=== PATIENT | female | born 1970 | race Two or more races ===

== ENCOUNTER 2016-05-17 15:21 | Emergency (ER) | payer MEDICAID ==
[~2016-05-17] VITALS: Ht 165.1 cm; Wt 61.2 kg
[2016-05-17 15:28] VITALS: BP 99/66
[2016-05-17] MEDS ORDERED: IPRATROPIUM NEB FS 0.5 MG/2.5 ML AMPUL.NEB ONE (15:46)
[2016-05-17] MEDS ORDERED: ALBUTEROL FS 2.5 MG/3 ML VIAL.NEB ONE (15:46)
[2016-05-17] MEDS ORDERED: IPRATROPIUM NEB FS 0.5 MG/2.5 ML AMPUL.NEB NEB ONE (16:00)
[2016-05-17] MEDS ORDERED: ALBUTEROL FS 2.5 MG/3 ML VIAL.NEB NEB ONE (16:00)
[2016-05-17] MEDS ORDERED: predniSONE 20 MG TABLET PO ONE (16:00)
[2016-05-17] MEDS ORDERED: predniSONE 20 MG TABLET ONE (16:13)
== END 2016-05-17 16:58 | disposition home or self-care (01) ==
LOC: ER 15:23
DX: J98.01 Acute bronchospasm (principal); J06.9 Acute upper respiratory infection, unspecified; J45.909 Unspecified asthma, uncomplicated
CPT/HCPCS: 71010; 94640; 99283; A4606; J7512; Z7610

== ENCOUNTER 2017-03-05 21:42 | Emergency (ER) | payer BC, MEDICAID ==
[~2017-03-05] VITALS: Ht 170.2 cm; Wt 66.7 kg
--- NOTE | 2017-03-05 22:10 | NUR ---
TO BED 2 AMBULATORY C/O EPIGASTRIC PAIN X3 DAYS. PT AAOX4 NO ACUTE DISTRESS NOTED, RESP EVEN AND UNLABORED. URINE SAMPLE COLLECTED AND SENT TO LAB.
--- NOTE | 2017-03-05 22:13 | NUR ---
JOSELO DSOUZA AT BEDSIDE TO TIFFANIE DAVIS.
[2017-03-05] MEDS ORDERED: FAMOTIDINE/PF INJ 20 MG/2 ML VIAL IV ONE (22:37)
[2017-03-05] MEDS ORDERED: ONDANSETRON HCL/PF 4 MG/2 ML VIAL ONE (22:37)
--- NOTE | 2017-03-05 22:38 | NUR ---
RN AT BEDSIDE TO MEDICATE PT.
[2017-03-05] MEDS: IV NS 0.9% 500 ML BAG IV ONE (22:40)
[2017-03-05] MEDS: FAMOTIDINE/PF INJ 20 MG/2 ML VIAL IV ONE (22:41)
[2017-03-05] MEDS: ONDANSETRON HCL/PF 4 MG/2 ML VIAL IVP ONE (22:41)
--- NOTE | 2017-03-05 22:41 | NUR ---
MEDICATED PATIENT ORDERED BY DR CISSE.
[2017-03-05 22:47] LABS: BASOPHILS % (AUTO) 0.5 % (0.0-2.0); EOSINOPHILS # (AUTO) 0.1 /CMM (0.0-0.7); EOSINOPHILS % (AUTO) 0.8 % (0.0-6.0); HEMATOCRIT 39 % (33-45); HEMOGLOBIN 12.6 g/dL (11.5-14.8); LYMPHOCYTES # (AUTO) 2.3 /CMM (0.8-4.8); MEAN CORPUSCULAR HEMOGLOBIN 27 PG (26.0-33.0); MEAN CORPUSCULAR HGB CONC 33 g/dl (31.0-36.0); MEAN CORPUSCULAR VOLUME 81 fL (82-100); MONOCYTES # (AUTO) 0.4 /CMM (0.1-1.30); MONOCYTES % (AUTO) 5.1 % (2.0-12.0); NEUTROPHILS # (AUTO) 5.1 /CMM (1.8-8.9); NEUTROPHILS % (AUTO) 64.6 % (43.0-81.0); PLATELET COUNT (AUTO) 260 /CMM (150-450); RDW COEFFICIENT OF VARIATION 13.5 (11.5-15.0); RED BLOOD CELL COUNT(AUTO) 4.78 MIL/uL (4.0-5.2); WHITE BLOOD COUNT (AUTO) 7.8 K/uL (4.3-11.0)
[2017-03-05 22:52] LABS: APPEARANCE,URINE CLEAR (CLEAR); BILIRUBIN,URINE NEGATIVE (NEGATIVE); BLOOD, URINE 1+ Ery/uL (NEGATIVE); COLOR,URINE YELLOW (YELLOW); KETONES,URINE NEGATIVE (NEGATIVE); LEUKOCYTE ESTERASE ,URINE 1+ (NEGATIVE); NITRITE, URINE NEGATIVE (NEGATIVE); PROTEIN,URINE NEGATIVE (NEGATIVE); UGLUCOSE NEGATIVE (NEGATIVE); UROBILINOGEN,URINE 0.2 EU/dL (0.2)
[2017-03-05 22:59] LABS: BACTERIA,URINE Few /HPF (None Seen); SQUAMOUS EPITHELIAL CELL,UR Few /HPF (None Seen); YEAST,URINE Rare /HPF (None Seen)
[2017-03-05 23:06] LABS: TROPONIN I < 0.017 ng/mL (0.00-0.056)
[2017-03-05 23:11] LABS: ALANINE AMINOTRANSFERASE 28 U/L (12-78); ALBUMIN 3.9 g/dL (3.4-5.0); ALKALINE PHOSPHATASE 101 U/L (46-116); ASPARTATE AMINOTRANSFERASE 11 U/L (15-37); BILIRUBIN,TOTAL 0.1 mg/dL (0.2-1.0); CALCIUM, SERUM 9.5 mg/dL (8.5-10.1); CARBON DIOXIDE 27 mmol/L (21-32); CHLORIDE 107 mmol/L (98-107); GLUCOSE 136 mg/dL (74-106); LIPASE 154 U/L (73-393); POTASSIUM 3.4 mmol/L (3.5-5.1); SODIUM SERUM 142 mmol/L (136-145); TOTAL PROTEIN, SERUM 8.1 g/dL (6.4-8.2)
[2017-03-05 23:19] LABS: UREA NITROGEN, BLOOD 15 mg/dL (7-18)
[2017-03-05] MEDS ORDERED: CIPROFLOXACIN HCL 500 MG TABLET ONE (23:27)
[2017-03-05] MEDS: CIPROFLOXACIN HCL 250 MG TABLET PO ONE (23:29)
--- NOTE | 2017-03-05 23:29 | NUR ---
IV removed. Catheter intact and site benign. Pressure and 4x4 applied to site. No bleeding noted. Patient discharged to home in stable condition. Written and verbal after care instructions given. Patient verbalizes understanding of instruction. ambulatory with a steady gait
[2017-03-05 23:30] VITALS: BP 124/69
== END 2017-03-05 23:31 | disposition home or self-care (01) ==
LOC: ER 21:51
DX: N39.0 Urinary tract infection, site not specified (principal); J45.909 Unspecified asthma, uncomplicated; E11.9 Type 2 diabetes mellitus without complications
CPT/HCPCS: 36415; 80048-TC; 80076-TC; 81000-TC; 83690-TC; 84484-TC; 85025-TC; 87086-TC; A4606; J2405; J3490; J7040; Z7610

== ENCOUNTER 2019-04-30 18:13 | Emergency (ER) | payer MEDICAID ==
[~2019-04-30] VITALS: Ht 170.2 cm; Wt 59.9 kg
--- NOTE | 2019-04-30 18:20 | NUR ---
c/o chest sharp pressure like pain x 2 weeks, radiating to left shoulder 08/30 ps. Patient a/ox4, breathing even and unlabored, no sob noted, needs attended, kept comfortable.
[2019-04-30 18:42] LABS: BASOPHILS # (AUTO) 0.1 /CMM (0.0-0.2); EOSINOPHILS % (AUTO) 1.4 % (0.0-6.0); HEMATOCRIT 39 % (33-45); HEMOGLOBIN 12.6 g/dL (11.5-14.8); LYMPHOCYTES # (AUTO) 1.8 /CMM (0.8-4.8); LYMPHOCYTES % (AUTO) 29.7 % (20.0-44.0); MEAN CORPUSCULAR HGB CONC 33 g/dl (31.0-36.0); MEAN CORPUSCULAR VOLUME 84 fL (82-100); MONOCYTES # (AUTO) 0.3 /CMM (0.1-1.30); MONOCYTES % (AUTO) 4.6 % (2.0-12.0); NEUTROPHILS # (AUTO) 3.8 /CMM (1.8-8.9); NEUTROPHILS % (AUTO) 63.3 % (43.0-81.0); PLATELET COUNT (AUTO) 220 /CMM (150-450); WHITE BLOOD COUNT (AUTO) 6.1 K/uL (4.3-11.0)
[2019-04-30 19:09] LABS: CARBON DIOXIDE 27 mmol/L (21-32); CHLORIDE 107 mmol/L (98-107); GLUCOSE 93 mg/dL (74-106); POTASSIUM 3.4 mmol/L (3.5-5.1); SODIUM SERUM 144 mmol/L (136-145); UREA NITROGEN, BLOOD 18 mg/dL (7-18)
--- NOTE | 2019-04-30 19:22 | NUR ---
endorsed to malika goldberg.
[2019-04-30 19:52] LABS: APPEARANCE,URINE Clear (CLEAR); BILIRUBIN,URINE Negative (NEGATIVE); BLOOD, URINE Trace-intact Ery/uL (NEGATIVE); COLOR,URINE Yellow (YELLOW); KETONES,URINE Negative (NEGATIVE); LEUKOCYTE ESTERASE ,URINE Small (NEGATIVE); NITRITE, URINE Negative (NEGATIVE); PROTEIN,URINE Negative (NEGATIVE); UGLUCOSE Negative (NEGATIVE); UROBILINOGEN,URINE 0.2 EU/dL (0.2)
[2019-04-30] MEDS ORDERED: IV NS 0.9% 1,000 ML BAG IV ONE (20:00)
[2019-04-30 20:01] LABS: BACTERIA,URINE 1+ /HPF (None Seen); SQUAMOUS EPITHELIAL CELL,UR Few /HPF (None Seen)
[2019-04-30] MEDS ORDERED: POTASSIUM CHLORIDE 20 MEQ TAB.PRT.SR PO ONE ×2 (21:10→21:30)
--- NOTE | 2019-04-30 21:20 | NUR ---
IV removed. Catheter intact and site benign. Pressure and 4x4 applied to site. No bleeding noted.
--- NOTE | 2019-04-30 21:23 | NUR ---
Patient discharged to home in stable condition. Written and verbal after care instructions given. Patient verbalizes understanding of instruction and RX. VSS. No acute distress noted. Pt ambulatory with steady gait.
[2019-04-30 21:27] VITALS: BP 112/76
== END 2019-04-30 21:27 | disposition home or self-care (01) ==
LOC: ER 18:19
DX: N39.0 Urinary tract infection, site not specified (principal); E87.6 Hypokalemia; E86.0 Dehydration; R94.31 Abnormal electrocardiogram [ECG] [EKG]; J45.909 Unspecified asthma, uncomplicated; E11.9 Type 2 diabetes mellitus without complications; Z90.710 Acquired absence of both cervix and uterus; Z98.890 Other specified postprocedural states
CPT/HCPCS: 36415; 71045-TC; 80048-TC; 81000-TC; 84484-TC; 84702-TC; 85025-TC; 87086-TC

== ENCOUNTER 2022-05-18 08:13 | Emergency (ER) | payer MEDICAID ==
[~2022-05-18] VITALS: Ht 170.2 cm; Wt 59.0 kg
--- NOTE | 2022-05-18 08:41 | NUR ---
BIB C/O RIGHT SIDED RIB PAIN X1 MONTH AND STATED THAT IT IS STARTING TO FEEL WORSE AND NOT GETTING BETTER.
--- NOTE | 2022-05-18 08:58 | NUR ---
PT EXPLAIN THE PLAN OF CARE AND THAT SHE WILL HAVE AN X RAY DONE AND WILL HAVE RESULTS IN ABOUT AN HOUR. PT STATED THAT SHE DID NOT WANT TO BE HERE FOR AN HOUR AND WALKED OUT. AWARE.
[2022-05-18 09:02] VITALS: BP 127/87
[2022-05-18] MEDS ORDERED: IBUP-1955 PO (09:02)
== END 2022-05-18 09:07 | disposition home or self-care (01) ==
LOC: ER 08:15
DX: R07.81 Pleurodynia (principal); J45.909 Unspecified asthma, uncomplicated; E11.9 Type 2 diabetes mellitus without complications